=== PATIENT | male | born 1985 | race Caucasian/White ===

== ENCOUNTER 2023-03-17 18:37 | Observation (INO) | payer OTHER ==
[2023-03-17 19:23] LABS: Appearance,Urine Clear (Clear); Bilirubin,Urine Negative (Negative); Blood,Urine Negative (Negative); Color,Urine Colorless; Glucose,Urine (UA) Negative (Negative); Ketones,Urine Negative (Negative); Leukocyte Esterase,Urine Negative (Negative); Nitrite,Urine Negative (Negative); Protein,Urine Negative (Negative); Specific Gravity,Urine 1.003 (1.001-1.035); Urobilinogen,Urine <2.0 mg/dL (<2.0)
[2023-03-17] MEDS ORDERED: ONDANSETRON 4 MG/2 ML VIAL IVP PRN (20:23)
[2023-03-17] MEDS ORDERED: HYDROmorphone 0.5 MG/0.5 ML SYRINGE IVP PRN (20:23)
[2023-03-17] MEDS ORDERED: NALOXONE 0.4 MG/ML 1 ML VIAL IV PRN (20:23)
--- NOTE | 2023-03-17 20:27 | ED ---
General Adult HPI - General Chief complaint: Abdominal Pain Stated complaint: abd pain Time Seen by Provider: 03/17/23 20:00 Source: patient, RN notes reviewed, old records reviewed Mode of arrival: ambulatory Limitations: no limitations - History of Present Illness Initial comments: 38-year-old male presents for evaluation of intermittent abdominal pain and weight loss. Patient was sent in by Dr. Meraz for urgent workup. He had occult positive stool sample at Dr. Leblanc's office this morning. He's had pain throughout his abdomen over the past 5 months. He's had outpatient workup including laboratory testing I did scan and abdominal ultrasound. Patient reports this has normal. - Related Data Home Medications Medication Instructions Recorded Confirmed No Known Home Medications 03/17/23 03/17/23 Allergies Allergy/AdvReac Type Severity Reaction Status Date / Time No Known Allergies Allergy Verified 03/17/23 21:10 Review of Systems ROS Statement: Those systems with pertinent positive or pertinent negative responses have been documented in the HPI. ROS Other: All systems not noted in ROS Statement are negative. Past Medical History Past Medical History: No Reported History History of Any Multi-Drug Resistant Organisms: None Reported Past Surgical History: No Surgical Hx Reported Past Psychological History: No Psychological Hx Reported Smoking Status: Never smoker Past Alcohol Use History: None Reported Past Drug Use History: None Reported General Exam Limitations: no limitations General appearance: alert, in no apparent distress Head exam: Present: atraumatic, normocephalic Eye exam: Present: normal appearance, PERRL ENT exam: Present: normal exam Neck exam: Present: normal inspection. Absent: tenderness, meningismus Respiratory exam: Present: normal lung sounds bilaterally. Absent: respiratory distress, wheezes Cardiovascular Exam: Present: regular rate, normal rhythm GI/Abdominal exam: Present: soft, tenderness (Minimal tenderness). Absent: distended Extremities exam: Present: normal inspection, normal capillary refill Neurological exam: Present: alert, oriented X3, CN II-XII intact. Absent: motor sensory deficit Skin exam: Present: warm, dry, intact. Absent: cyanosis, diaphoretic Course Vital Signs 03/17/23 18:57 Temperature 97.9 F Pulse Rate 63 Respiratory 16 Rate Blood Pressure 126/75 O2 Sat by Pulse 98 Oximetry - Reevaluation(s) Reevaluation #1: 03/17/23 20:32 Patient was sent in for further evaluation of intermittent abdominal pain and weight loss. Laboratory testing, CT of the abdomen pelvis with contrast is pending. Patient has been admitted to Dr. Meraz awaiting these results. Medical Decision Making - Medical Decision Making Was pt. sent in by a medical professional or institution (, VINAYAK, CARD FILER, urgent care, hospital, or fdc...) When possible be specific @ -Sent in by Dr. Meraz Did you speak to anyone other than the patient for history (EMS, parent, family, police, friend...)? What history was obtained from this source @ -No Did you review nursing and triage notes (agree or disagree)? Why? @ -I reviewed and agree with nursing and triage notes Were old charts reviewed (outside hosp., previous admission, EMS record, old EKG, old radiological studies, urgent care reports/EKG's, fdc records)? Report findings @ -No old charts were reviewed Differential Diagnosis (chest pain, altered mental status, abdominal pain women, abdominal pain men, vaginal bleeding, weakness, fever, dyspnea, syncope, headache, dizziness, GI bleed, back pain, seizure, CVA, palpatations, mental health, musculoskeletal)? Differential Abdominal Pain Men: Appendicitis, cholecystitis, diverticulosis, ischemic bowel, pancreatitis, hepatitis, UTI, gastroenteritis, AAA, incarcerated hernia, bowel obstruction, constipation, inflammatory bowel, hepatitis, peptic ulcer disease, splenic infarction, perforated viscus, testicular torsion, this is not meant to be an all-inclusive list EKG interpreted by me (3pts min.). @ -As above X-rays interpreted by me (1pt min.). @ -None done CT interpreted by me (1pt min.). @ -CT pending U/S interpreted by me (1pt. min.). @ -None done What testing was considered but not performed or refused? (CT, X-rays, U/S, labs)? Why? @ -None What meds were considered but not given or refused? Why? @ -None Did you discuss the management of the patient with other professionals (professionals i.e. , VINAYAK, CARD FILER, lab, RT, psych nurse, case management social worker, outside plant field engineer, teacher, gunnery/ordnance officer, pillowcase cutter)? Give summary @Dr. Smallwood Was smoking cessation discussed for >3mins.? @ -No Was critical care preformed (if so, how long)? @ -No Were there social determinants of health that impacted care today? How? (Homelessness, low income, unemployed, alcoholism, drug addiction, transportation, low edu. Level, literacy, decrease access to med. care, [facility], rehab)? @ -No Was there de-escalation of care discussed even if they declined (Discuss DNR or withdrawal of care, Hospice)? DNR status @ -No What co-morbidities impacted this encounter? (DM, HTN, Smoking, COPD, CAD, Cancer, CVA, ARF, Chemo, Hep., AIDS, mental health diagnosis, sleep apnea, morbid obesity)? @ -None Was patient admitted / discharged? Hospital course, mention meds given and route, prescriptions, significant lab abnormalities, going to OR and other pertinent info. @Patient sent in for evaluation of intermittent abdominal pain and weight loss. Laboratory studies are obtained, CT imaging obtained and patient will be admitted for likely colonoscopy and further evaluation by general surgery. Undiagnosed new problem with uncertain prognosis? @ -No Drug Therapy requiring intensive monitoring for toxicity (Heparin, Nitro, Insulin, Cardizem)? @ -No Were any procedures done? @ -No Diagnosis/symptom? @Abdominal pain Acute, or Chronic, or Acute on Chronic? @Chronic - Lab Data Result diagrams: 03/17/23 20:07 03/17/23 20:07 Lab Results 03/17/23 03/17/23 03/17/23 Range/Units 19:03 20:07 20:07 WBC 5.4 (3.8-10.6) k/uL RBC 4.10 L (4.30-5.90) m/uL Hgb 13.0 (13.0-17.5) gm/dL Hct 38.5 L (39.0-53.0) % MCV 93.8 (80.0-100.0) fL MCH 31.7 (25.0-35.0) pg MCHC 33.8 (31.0-37.0) g/dL RDW 12.3 (11.5-15.5) % Plt Count 222 (150-450) k/uL MPV 7.4 Neutrophils % 55 % Lymphocytes % 37 % Monocytes % 5 % Eosinophils % 1 % Basophils % 0 % Neutrophils # 3.0 (1.3-7.7) k/uL Lymphocytes # 2.0 (1.0-4.8) k/uL Monocytes # 0.3 (0-1.0) k/uL Eosinophils # 0.0 (0-0.7) k/uL Basophils # 0.0 (0-0.2) k/uL PT 11.0 (9.0-12.0) sec INR 1.0 (<1.2) APTT 24.5 (22.0-30.0) sec Sodium (137-145) mmol/L Potassium (3.5-5.1) mmol/L Chloride (98-107) mmol/L Carbon Dioxide (22-30) mmol/L Anion Gap mmol/L BUN (9-20) mg/dL Creatinine (0.66-1.25) mg/dL Est GFR (CKD-EPI)AfAm (>60 ml/min/1.73 sqM) Est GFR (CKD-EPI)NonAf (>60 ml/min/1.73 sqM) Glucose (74-99) mg/dL Plasma Lactic Acid Ming (0.7-2.0) mmol/L Calcium (8.4-10.2) mg/dL Total Bilirubin (0.2-1.3) mg/dL AST (17-59) U/L ALT (4-49) U/L Alkaline Phosphatase (38-126) U/L Total Protein (6.3-8.2) g/dL Albumin (3.5-5.0) g/dL Amylase (30-110) U/L Lipase (23-300) U/L Urine Color Colorless Urine Appearance Clear (Clear) Urine pH 7.0 (5.0-8.0) Ur Specific [place] 1.003 (1.001-1.035) Urine Protein Negative (Negative) Urine Glucose (UA) Negative (Negative) Urine Ketones Negative (Negative) Urine Blood Negative (Negative) Urine Nitrite Negative (Negative) Urine Bilirubin Negative (Negative) Urine Urobilinogen <2.0 (<2.0) mg/dL Ur Leukocyte Esterase Negative (Negative) 03/17/23 03/17/23 Range/Units 20:07 20:07 WBC (3.8-10.6) k/uL RBC (4.30-5.90) m/uL Hgb (13.0-17.5) gm/dL Hct (39.0-53.0) % MCV (80.0-100.0) fL MCH (25.0-35.0) pg MCHC (31.0-37.0) g/dL RDW (11.5-15.5) % Plt Count (150-450) k/uL MPV Neutrophils % % Lymphocytes % % Monocytes % % Eosinophils % % Basophils % % Neutrophils # (1.3-7.7) k/uL Lymphocytes # (1.0-4.8) k/uL Monocytes # (0-1.0) k/uL Eosinophils # (0-0.7) k/uL Basophils # (0-0.2) k/uL PT (9.0-12.0) sec INR (<1.2) APTT (22.0-30.0) sec Sodium 139 (137-145) mmol/L Potassium 4.0 (3.5-5.1) mmol/L Chloride 103 (98-107) mmol/L Carbon Dioxide 31 H (22-30) mmol/L Anion Gap 5 mmol/L BUN 13 (9-20) mg/dL Creatinine 0.67 (0.66-1.25) mg/dL Est GFR (CKD-EPI)AfAm >90 (>60 ml/min/1.73 sqM) Est GFR (CKD-EPI)NonAf >90 (>60 ml/min/1.73 sqM) Glucose 83 (74-99) mg/dL Plasma Lactic Acid Ming 0.5 L (0.7-2.0) mmol/L Calcium 9.2 (8.4-10.2) mg/dL Total Bilirubin 0.6 (0.2-1.3) mg/dL AST 34 (17-59) U/L ALT 45 (4-49) U/L Alkaline Phosphatase 70 (38-126) U/L Total Protein 6.8 (6.3-8.2) g/dL Albumin 4.1 (3.5-5.0) g/dL Amylase 62 (30-110) U/L Lipase 188 (23-300) U/L Urine Color Urine Appearance (Clear) Urine pH (5.0-8.0) Ur Specific [place] (1.001-1.035) Urine Protein (Negative) Urine Glucose (UA) (Negative) Urine Ketones (Negative) Urine Blood (Negative) Urine Nitrite (Negative) Urine Bilirubin (Negative) Urine Urobilinogen (<2.0) mg/dL Ur Leukocyte Esterase (Negative) Disposition Clinical Impression: Abdominal pain Disposition: ADMITTED IP TO THIS HOSP Condition: Stable Is patient prescribed a controlled substance at d/c from ED?: No Time of Disposition: 20:26
[2023-03-17 20:43] LABS: Basophils % (A) 0 %; Eosinophils % (A) 1 %; HCT 38.5 % (39.0-53.0); Lymphocytes % (A) 37 %; MCH 31.7 pg (25.0-35.0); MCHC 33.8 g/dL (31.0-37.0); MCV 93.8 fL (80.0-100.0); Mean Platelet Volume 7.4; Monocytes # (A) 0.3 k/uL (0-1.0); Monocytes % (A) 5 %; Neutrophils % (A) 55 %; Platelet Count 222 k/uL (150-450); RDW 12.3 % (11.5-15.5); WBC 5.4 k/uL (3.8-10.6)
[2023-03-17 21:01] LABS: Partial Thromboplastin Time 24.5 sec (22.0-30.0)
[2023-03-17 21:02] LABS: ALT 45 U/L (4-49); AST 34 U/L (17-59); African American GFR (CKD) >90 (>60 ml/min/1.73 sqM); Albumin 4.1 g/dL (3.5-5.0); Alkaline Phosphatase 70 U/L (38-126); Amylase 62 U/L (30-110); Anion Gap 5 mmol/L; Blood Urea Nitrogen 13 mg/dL (9-20); Calcium 9.2 mg/dL (8.4-10.2); Carbon Dioxide 31 mmol/L (22-30); Chloride 103 mmol/L (98-107); Glucose 83 mg/dL (74-99); Lipase 188 U/L (23-300); Non-African American GFR(CKD) >90 (>60 ml/min/1.73 sqM); Sodium 139 mmol/L (137-145); Total Bilirubin 0.6 mg/dL (0.2-1.3); Total Protein 6.8 g/dL (6.3-8.2)
[2023-03-17] MEDS ORDERED: PEG 3350 (420 GM/BTL) + LYTES 4,000 ML BOTTLE PO ONE (21:30)
--- NOTE | 2023-03-17 21:40 | CT ---
EXAMINATION TYPE: CT abdomen pelvis w con DATE OF EXAM: 03/17/2023 COMPARISON: Ultrasound 12/24/2022 HISTORY: 38-year-old male generalized abd pain TECHNIQUE: Contiguous axial scanning of the abdomen and pelvis following administration of 100 ml Iso dara 300 IV contrast. Delayed images through the kidneys and coronal/sagittal reconstructions perform ed. CT DLP: 822.3 mGycm Automated exposure control for dose reduction was used. FINDINGS: Heart normal size without pericardial effusion. Lung bases clear without pleural effusion. No focal liver lesion or biliary ductal dilatation. Portal venous system is patent. Gallbladder, adrenal glands, kidneys, spleen, and pancreas within normal limits. Hilar splenule noted . No dilated small bowel, free fluid, or free air. Some prominent fluid-filled small bowel loops in the lower abdomen and pelvis probably transient. No mesenteric or retroperitoneal lymphadenopathy seen. Normal appendix. There is moderate stool in the right side of the colon. No pericolonic inflammatory change. Bladder partially distended. Prostate gland enlargement 5.1 cm wide. No abnormal fluid collection in the pelvis or pelvic lymphadenopathy. Bones: No osseous destructive process. IMPRESSION: 1. SOME PROMINENT FLUID-FILLED SMALL BOWEL LOOPS IN THE LOWER ABDOMEN AND PELVIS PROBABLY TRANSIENT. THIS COULD ALSO REFLECT A MILD NONSPECIFIC ENTERITIS. 2. MODERATE STOOL WITHIN THE RIGHT SIDE OF THE COLON. NORMAL APPENDIX. 3. PROSTATOMEGALY AT 5.1 CM WIDE.
[2023-03-17] MEDS: SODIUM CHLORIDE 0.9% 1,000 ML IV SCH (22:14)
[2023-03-18] MEDS: PANTOPRAZOLE 40 MG/10 ML VIAL IVP SCH (11:01)
[2023-03-18] MEDS: SODIUM CHLORIDE 0.9% 1,000 ML IV SCH ×2 (11:01→21:16)
[2023-03-18] MEDS ORDERED: METOCLOPRAMIDE 5 MG/ML 2 ML VIAL IVP PRN (11:02)
[2023-03-18] MEDS ORDERED: ACETAMINOPHEN TAB 325 MG TAB PO PRN (11:02)
[2023-03-18] MEDS ORDERED: SODIUM CHLORIDE 0.9% 1,000 ML IV ONE (11:03)
[2023-03-18] MEDS ORDERED: PEG 3350 (420 GM/BTL) + LYTES 4,000 ML BOTTLE PO ONE (11:30)
[2023-03-18 12:41] VITALS: BMI 24.0
--- NOTE | 2023-03-18 14:39 | P.GSHP ---
History of Present Illness H&P Date: 03/18/23 CHIEF COMPLAINT: Abdominal pain HISTORY OF PRESENT ILLNESS: This is a 38-year-old male who presented with complaints of abdominal pain mostly on the right side of the abdomen. However the pain does move throughout the abdomen. He does report that the pain sometimes radiates to the back. He's been having this pain since Ly time. He is expressible 20 pound weight loss over the last 2 months. Stool was positive for occult blood in his PCP office. Patient does report occasionally having black stools. He does report having mostly diarrhea but at times he'll have small formed stools. Computed tomography scan abdomen had shown some prominent fluid-filled small bowel loops in the lower abdomen and pelvis probably transient. This could also reflect a mild nonspecific enteritis. Mo derate stool within the right side of the colon. Normal appendix. Prostamegaly of 5.1 cm wide. Patient has never had a colonoscopy. PAST MEDICAL HISTORY: none PAST SURGICAL HISTORY: none MEDICATIONS: See list. ALLERGIES: See list. SOCIAL HISTORY: No illicit drug use. Family history: Dad with prostate cancer REVIEW OF SYSTEMS: CONSTITUTIONAL: Denies fever or chills. HEENT: Denies blurred vision, vision changes, or eye pain. Denies hemoptysis ENDOCRINE: Denies heat or cold intolerance. CARDIOVASCULAR: Denies chest pain or pressure. RESPIRATORY: No shortness of breath. GASTROINTESTINAL: Denies abdominal pain. Denies nausea or vomiting. NEURO: Denies history of seizures. PSYCH: No depression or suicidal ideation HEMATOLOGIC: Denies bleeding disorders. LYMPHATIC: The patient denies any lumps and bumps around the neck. GENITOURINARY: Denies any blood in urine or increased urinary frequency. MUSCULOSKELETAL: Denies myalgias. Denies joint swelling. Denies decreased range of motion beyond patients baseline. SKIN: Denies pruitis. Denies rash. PHYSICAL EXAM: VITAL SIGNS: Reviewed GENERAL: Well-developed in no acute distress. HEENT: No sclera icterus. Extraocular movements grossly intact. Moist buccal mucosa. Head is atraumatic, normocephalic. Hears conversational speech. No nasal drainage. NECK: Supple without lymphadenopathy. CHEST: Non-labored respirations and equal bilateral excursions. CARDIOVASCULAR: Palpable 2+ radial pulses. ABDOMEN: Soft. Nondistended. Mild right-sided tenderness MUSCULOSKELETAL: No clubbing or cyanosis. NEUROLOGIC: No focal or lateralizing signs. Cranial nerves II through XII grossly intact. PSYCH: Appropriate affect. Alert and oriented to person, place and time. SKIN: Well perfused. Good skin turgor. LABORATORY DATA: WBC is 5.4 Hgb 13 platelets 222 INR 1.0 Sodium is 139 potassium 4.0 creatinine 0.67 Lactic acid 0.5 LFTs normal lipase 188 Urinalysis negative for infection IMAGING: Computed tomography scan findings as stated above ASSESSMENT: 1. Acute GI bleed with melanotic stools. Stool for occult blood positive and PCP office 2. Abdominal pain mostly on the right side 3. Prominent fluid-filled loops of small bowel noted on computed tomography scan possible enteritis 4. Enlarged prostate 5. 20 pound weight loss PLAN: -Patient scheduled for EGD and colonoscopy tomorrow with Dr. Meraz -Start bowel prep today -Clear liquid diet today -Nothing by mouth after midnight -Continue IV fluids -Continue IV Protonix Physician Manager Machine note has been reviewed by physician. Signing provider agrees with the documented findings, assessment, and plan of care. Past Medical History Past Medical History: No Reported History History of Any Multi-Drug Resistant Organisms: None Reported Past Surgical History: No Surgical Hx Reported Past Anesthesia/Blood Transfusion Reactions: No Reported Reaction Past Psychological History: No Psychological Hx Reported Smoking Status: Never smoker Past Alcohol Use History: None Reported Past Drug Use History: None Reported Medications and Allergies Home Medications Medication Instructions Recorded Confirmed Type No Known Home Medications 03/17/23 03/17/23 History Allergies Allergy/AdvReac Type Severity Reaction Status Date / Time No Known Allergies Allergy Verified 03/17/23 21:10 Surgical - Exam Vital Signs Temp Pulse Resp BP Pulse Ox 97.9 F 63 16 126/75 98 03/17/23 18:57 03/17/23 18:57 03/17/23 18:57 03/17/23 18:57 03/17/23 18:57 Results - Labs 03/17/23 20:07 03/17/23 20:07 Abnormal Lab Results - Last 24 Hours (Table) 03/17/23 03/17/23 03/17/23 Range/Units 20:07 20:07 20:07 RBC 4.10 L (4.30-5.90) m/uL Hct 38.5 L (39.0-53.0) % Carbon Dioxide 31 H (22-30) mmol/L Plasma Lactic Acid Ming 0.5 L (0.7-2.0) mmol/L Diabetes panel 03/17/23 Range/Units 20:07 Sodium 139 (137-145) mmol/L Potassium 4.0 (3.5-5.1) mmol/L Chloride 103 (98-107) mmol/L Carbon Dioxide 31 H (22-30) mmol/L BUN 13 (9-20) mg/dL Creatinine 0.67 (0.66-1.25) mg/dL Glucose 83 (74-99) mg/dL Calcium 9.2 (8.4-10.2) mg/dL AST 34 (17-59) U/L ALT 45 (4-49) U/L Alkaline Phosphatase 70 (38-126) U/L Total Protein 6.8 (6.3-8.2) g/dL Albumin 4.1 (3.5-5.0) g/dL Calcium panel 03/17/23 Range/Units 20:07 Calcium 9.2 (8.4-10.2) mg/dL Albumin 4.1 (3.5-5.0) g/dL Pituitary panel 03/17/23 Range/Units 20:07 Sodium 139 (137-145) mmol/L Potassium 4.0 (3.5-5.1) mmol/L Chloride 103 (98-107) mmol/L Carbon Dioxide 31 H (22-30) mmol/L BUN 13 (9-20) mg/dL Creatinine 0.67 (0.66-1.25) mg/dL Glucose 83 (74-99) mg/dL Calcium 9.2 (8.4-10.2) mg/dL Adrenal panel 03/17/23 Range/Units 20:07 Sodium 139 (137-145) mmol/L Potassium 4.0 (3.5-5.1) mmol/L Chloride 103 (98-107) mmol/L Carbon Dioxide 31 H (22-30) mmol/L BUN 13 (9-20) mg/dL Creatinine 0.67 (0.66-1.25) mg/dL Glucose 83 (74-99) mg/dL Calcium 9.2 (8.4-10.2) mg/dL Total Bilirubin 0.6 (0.2-1.3) mg/dL AST 34 (17-59) U/L ALT 45 (4-49) U/L Alkaline Phosphatase 70 (38-126) U/L Total Protein 6.8 (6.3-8.2) g/dL Albumin 4.1 (3.5-5.0) g/dL
--- NOTE | 2023-03-18 18:43 | P.CONS ---
History of Present Illness - Reason for Consult Consult date: 03/18/23 Medical management Requesting physician: Marina Meraz - Chief Complaint Abdominal pain - History of Present Illness This is a 38-year-old gentleman not on any home medications, father with prostate cancer, admitted with diffuse abdominal pain, greatest on the right s aisl[place],rectal pain since October 2023, unintentional 20 pound weight loss over the last 2 months. Occult blood positive at PCPs office. Reports bowel movements are mostly diarrhea-melanotic. Abdomen/pelvis CT reported some prominent fluid- filled small bowel loops in the lower abdomen and pelvis probably transient, possibly could reflect a mild nonspecific enteritis, moderate stool within the right side of the colon, normal appendix, prosthetic dramatically at 5.1 cm wide. Afebrile, normal WBC, hemoglobin 13, platelets 222, coagulation panel unremarkable, sodium 139, potassium 4, renal function stable glucose 83, lactic acid 0.5, LFTs within normal limits, pancreatic enzymes within normal limits. UA negative. Denies chest pain, palpitations or shortness of breath. Denies lightheadedness, dizziness or focal deficits. Review of Systems ROS Statement: Those systems with pertinent positive or pertinent negative responses have been documented in the HPI. ROS Other: All systems not noted in ROS Statement are negative. Past Medical History Past Medical History: No Reported History History of Any Multi-Drug Resistant Organisms: None Reported Past Surgical History: No Surgical Hx Reported Past Anesthesia/Blood Transfusion Reactions: No Reported Reaction Past Psychological History: No Psychological Hx Reported Smoking Status: Never smoker Past Alcohol Use History: None Reported Past Drug Use History: None Reported Medications and Allergies Home Medications Medication Instructions Recorded Confirmed Type No Known Home Medications 03/17/23 03/17/23 History Allergies Allergy/AdvReac Type Severity Reaction Status Date / Time No Known Allergies Allergy Verified 03/17/23 21:10 Physical Exam Vitals: Vital Signs Temp Pulse Pulse Resp BP BP Pulse Ox 03/18/23 12:31 98.2 F 56 L 18 110/63 98 03/18/23 07:03 97.8 F 58 L 16 103/50 98 03/18/23 01:04 97.8 F 59 L 16 99/61 98 03/17/23 21:43 98.3 F 59 L 18 133/70 99 03/17/23 18:57 97.9 F 63 16 126/75 98 Intake and Output 03/18/23 03/18/23 03/18/23 06:59 14:59 22:59 Other: # Voids 1 Weight 76.204 kg Results CBC & Chem 7: 03/17/23 20:07 03/17/23 20:07 Labs: Abnormal Lab Results - Last 24 Hours (Table) 03/17/23 03/17/23 03/17/23 Range/Units 20:07 20:07 20:07 RBC 4.10 L (4.30-5.90) m/uL Hct 38.5 L (39.0-53.0) % Carbon Dioxide 31 H (22-30) mmol/L Plasma Lactic Acid Ming 0.5 L (0.7-2.0) mmol/L Assessment and Plan Assessment: Abdominal pain 5 months, accompanied by acute GI bleed , positive stool for occult blood at PCPs office ,unintentional 20 pound weight loss over 2 months, etiology unclear Prominent fluid-filled loops of small bowel,possible enteritis reported per CT. Enlarged prostate, in a patient whose father has history of prostate cancer, PSA ordered Plan: Continue on current medication regime ,monitoring and symptomatic treatment. IV fluid hydration. Patient is scheduled for both EGD and colonoscopy tomorrow with general surgery. Bowel prep recently arrived at bedside. Protonix IV push in place for GI prophylaxis. Pain management. PSA ordered, secondary to enlarged prostate/father has prostate cancer. Prognosis guarded given multiple complex medical issues. The impression and plan of care has been dictated as directed. : I performed a history and examination of this patient, discussed the same with the dictator. I agree with the dictator's note ,documented as a scribe. Any additional findings or plans will be noted.
[2023-03-19 07:32] VITALS: TEMP 98
[2023-03-19] MEDS: PANTOPRAZOLE 40 MG/10 ML VIAL IVP SCH (08:21)
[2023-03-19] MEDS ORDERED: LIDOCAINE 2% INJ 20 MG/ML (2 ML VIAL) ONE (09:13)
[2023-03-19] MEDS ORDERED: PROPOFOL 10 MG/ML 20 ML VIAL IV ONE (09:13)
[2023-03-19] MEDS ORDERED: IV FLUID CONTINUATION 1,000 ML IV ONE (09:15)
[2023-03-19 09:24] LABS: African American GFR (CKD) 137.8 (60.0-200.0); Anion Gap 5.8 mmol/L (10.00-18.00); BUN/Creat Ratio 12.86 Ratio (12.00-20.00); Calcium 9.1 mg/dL (8.7-10.3); Carbon Dioxide 26.2 mmol/L (20.0-27.5); Non-African American GFR(CKD) 118.9 (60.0-200.0); Potassium 4.2 mmol/L (3.5-5.5)
--- NOTE | 2023-03-19 09:32 | P.PCN ---
Date of Procedure: 03/19/23 Description of Procedure: PREOPERATIVE DIAGNOSIS: Gastrointestinal bleed Unintentional weight loss Diffuse abdominal pain POSTOPERATIVE DIAGNOSIS: Gastroesophageal reflux disease. Gastritis. OPERATION: Esophagogastroduodenoscopy with biopsies along antrum and duodenum SURGEON: Marina Meraz MD ANESTHESIA: MAC. INDICATIONS: The patient is a 38-year-old male who presents with gastrointestinal bleeding, generalized abdominal pain, unintentional weight loss or change in bowel habits. Benefits and risks of the procedure were described. Informed consent was obtained. DESCRIPTION: The patient was brought into the endoscopy suite and laid in the left lateral decubitus position. An Olympus gastroscope was passed along the posterior oropharynx down to the distal esophagus where the squamocolumnar junction was encountered at 40 cm from the incisors. The stomach was entered and no bile reflux was found. Additional findings are listed below. Biopsies with cold forceps were obtained of the antrum. The first through third portion of the duodenum was examined. Retroflexion of the scope confirmed Hill grade 2 lower esophageal valve. The squamocolumnar junction demonstrated LA grade B erosive esophagitis. The stomach was desufflated. The patient tolerated the procedure well. FINDINGS: Squamocolumnar junction 40 cm from the incisors. Diaphragmatic hiatus at 40 cm. Hill grade 2 lower esophageal valve. LA grade B erosive esophagitis. Cold forceps biopsies of duodenum Chronic gastritis with biopsies obtained RECOMMENDATIONS: Upper endoscopy as needed.
--- NOTE | 2023-03-19 10:21 | P.PCN ---
Date of Procedure: 03/19/23 Description of Procedure: PREOPERATIVE DIAGNOSIS: Gastrointestinal bleeding with hematochezia Unintentional weight loss Generalized abdominal pain POSTOPERATIVE DIAGNOSIS: Gastrointestinal bleeding with hematochezia Unintentional weight loss Generalized abdominal pain Colitis OPERATION: Colonoscopy to the cecum, ileocecal valve and appendiceal orifice Colonoscopy with cold forceps biopsies for colitis with stool cultures obtained SURGEON: Marina Meraz MD. ANESTHESIA: MAC. INDICATIONS: The patient is a 38-year-old male who presents with gastrointestinal bleeding and positive occult stool. Benefits and risks were described and informed consent was obtained. DESCRIPTION OF PROCEDURE: The patient had undergone attempted Golytely prep 4 L. The patient had been brought into the operating room and laid in the left lateral decubitus position. After adequate intravenous sedation, the rectum was examined with 2% lidocaine jelly. The rectal tone was tight. An Olympus colonoscope was gently advanced to the cecum with clear visualization of the ileocecal valve including appendiceal orifice. The prep was good. No sigmoid diverticulosis was encountered. No active colonic bleeding was found. No intraluminal masses were identified within the colon. No colonic polyps were found. Random biopsies were obtained for colitis. Retroflexion of the scope demonstrated grade 2 internal hemorrhoids with recent inflammation. The colon was desufflated. The patient had tolerated the procedure well. Withdrawal time was over 6 minutes. FINDINGS: Aronchick preparation quality scale 1 (1-5) Internal hemorrhoids, grade 2 No thrombosed hemorrhoid identified. No arteriovenous malformations. No adenomatous polyps. Random biopsies obtained for colitis. RECOMMENDATIONS: 1. Follow up as outpatient for results. 2. Stool cultures obtained Plan - Discharge Summary Discharge Rx Participant: Yes New Discharge Prescriptions: Continue No Known Home Medications Discharge Medication List No Known Home Medications 03/17/23 [History] Follow up Appointment(s)/Referral(s): Abdoul Leblanc Jr, DO [Primary Care Provider] - 1-2 days Marina Meraz MD [STAFF PHYSICIAN] - 03/25/23 9:00 am Patient Instructions/Handouts: Colonoscopy (DC) Discharge Disposition: HOME SELF-CARE
[2023-03-19 10:31] LABS: Basophils # (A) 0.02 X 10*3/uL (0.00-0.10); Basophils % (A) 0.5 %; Eosinophils # (A) 0.06 X 10*3/uL (0.04-0.35); Eosinophils % (A) 1.6 %; HCT 34.8 % (39.6-50.0); HGB 11.5 g/dL (13.0-17.0); Immature Grans, Automated 0.3 %; Lymphocytes # (A) 1.74 X 10*3/uL (0.90-5.00); Lymphocytes % (A) 45.2 %; MCV 96.9 fL (80.0-97.0); Mean Platelet Volume 10.1 fL (9.5-12.2); Monocytes # (A) 0.39 X 10*3/uL (0.20-1.00); Monocytes % (A) 10.1 %; NRBC Per 100 WBC 0 /100 WBCS (0.0-0.0); Neutrophils # (A) 1.63 X 10*3/uL (1.80-7.70); Neutrophils % (A) 42.3 %; Platelet Count 188 X 10*3/uL (140-440); RBC 3.59 X 10*6/uL (4.40-5.60); RDW 11.7 % (11.5-14.5); WBC 3.85 X 10*3/uL (4.50-10.00)
[2023-03-19 10:33] VITALS: BP 109/56; PULSE 61; RESP 18
[2023-03-21 10:06] LABS: Calprotectin, Stool 29.1 mcg/g (<50)
--- NOTE | 2023-03-24 12:37 | CDI ---
Documentation Clarification Form Date: 03/24/2023 From: Leyla Page Admit Date: 03/17/2023 8:23:00 PM Patient Name: Baljinder Edge Visit Number: [id number] Discharge Date: 03/19/2023 11:10:00 AM ATTENTION: The Clinical Documentation Specialists (CDI) and [facility] Coding Staff appreciate your assistance in clarifying documentation. Please respond to the clarification below the line at the bottom and electronically sign. The CDI & [facility] Coding staff will review the response and follow-up if needed. Please note: Queries are made part of the Legal Health Record. If you have any questions, please contact the author of this message via ITS. Dr. Marina Meraz, GI bleed is documented 03/18 History & Physical. Additional clarification regarding the etiology of the GI bleed is requested. History/risk factors: GERD, Hernia, BPH, unintentional weight loss, Hemorrhoids. Clinical Indicators: Occult Blood EGD/colonoscopy performed and findings: LA grade Berosive esophagitis, Chronic gastritis Labs: 03/17 HCT 38.5, HGB 13.0, RBC 4.10, WBC 5.4; 03/19 HCT 34.8, HGB 11.5, RBC 3.59, WBC 3.85, Lactoferrin Positive Treatment: 03/19 EGD/Colonoscopy Please clarify the etiology of the GI bleed, if known: [ ] GIB due to esophageal varices [ ] GIB due to esophageal ulcer [ ] GIB due to gastritis [ ] GIB due to GERD [ ] GIB due to intestinal infection [ ] GIB, etiology unknown [ ] Other, please specify [ ] Unable to determine MTDD
--- NOTE | 2023-04-13 18:08 | P.DS ---
Providers Date of admission: 03/17/23 20:23 Expected date of discharge: 03/19/23 Attending physician: Marina Meraz Consults: 03/17/23 20:23 Consult Physician Routine Consulting Provider: Abdoul Leblanc Jr Consult Reason/Comments: AB pain Do you want consulting provider notified?: Yes Primary care physician: [facility] Course: DISCHARGE DIAGNOSES: Gastrointestinal bleeding with hematochezia Unintentional weight loss Generalized abdominal pain Colitis Anemia Leukopenia CHIEF COMPLAINT: Gastrointestinal bleeding HISTORY OF PRESENT ILLNESS: The patient is a 38-year-old male who presented with acute on chronic abdominal pain, unintentional weight loss in the past 6 months and recent acute GI bleed with hematochezia. Due to severe as abdominal pain including GI bleeding, patient was admitted to the hospital. He underwent both upper and lower endoscopy to identify source of bleeding. Features of colitis described. Stool studies were obtained. Upper endoscopy findings of gastritis. Prior to discharge, IV fluid hydration was performed which patient tolerated diet. Follow up in office 1 week. ROS: Reports nausea and vomiting. No fevers or chills. No new chest pain. No productive sputum PHYSICAL EXAM: VITAL SIGNS: Reviewed CONSTITUTIONAL: Well developed and in no acute distress. EYES: Conjuctivae without sclera icterus. Extraocular movements grossly intact. HEAD, EARS, NOSE, THROAT: Moist buccal mucosa. Head is atraumatic, normocephalic. Hears conversational speech. No nasal drainage. RESPIRATORY: Non-labored respirations and equal bilateral excursions. CARDIOVASCULAR: Palpable 2+ radial pulses. ABDOMEN: No peritonitis. MUSCULOSKELETAL: No gross deformity of the lower extremities noted. No clubbing. No cyanosis. SKIN: Good skin turgor. Well perfused. NEUROLOGIC: Cranial nerves II through XII grossly intact. No focal or lateralizing signs. PSYCH: Appropriate affect. Alert and oriented to person, place and time. CLINICAL LABS: Reviewed. Hemoglobin count 13.0-11.5, anemia; WBC is low, leukopenia Stool cultures pending. ASSESSMENT: 1. GI bleed with anemia PLAN: 1. Stable for discharge 2. Follow up in office 1 week Patient Condition at Discharge: Good Plan - Discharge Summary Discharge Rx Participant: Yes New Discharge Prescriptions: Continue No Known Home Medications Discharge Medication List No Known Home Medications 03/17/23 [History] Follow up Appointment(s)/Referral(s): Abdoul Leblanc Jr, DO [Primary Care Provider] - 03/21/23 1:00 pm Marina Meraz MD [STAFF PHYSICIAN] - 03/25/23 9:00 am Patient Instructions/Handouts: Colonoscopy (DC) Activity/Diet/Wound Care/Special Instructions: PSA results to be faxed to PCP, . Discharge Disposition: HOME SELF-CARE
== END 2023-03-19 11:10 | disposition home or self-care (01) ==
LOC: EC 18:37 → 5NMEDONC 20:23 → INTOOBSV 20:23 → 5NMEDONC 21:13 → UNDODISIN 03-19 11:10
PROVIDERS: ADMIT Surgery Plastic and Reconstructive Surgery; ATTEND Surgery Plastic and Reconstructive Surgery
DX: K29.80 Duodenitis without bleeding (principal); K29.50 Unspecified chronic gastritis without bleeding; K21.00 Gastro-esophageal reflux disease with esophagitis, without bleeding; K64.1 Second degree hemorrhoids; N40.0 Benign prostatic hyperplasia without lower urinary tract symptoms; R63.4 Abnormal weight loss; Z80.42 Family history of malignant neoplasm of prostate
CPT/HCPCS: 96361 ×2; 96374; 96376; 99285; 36415; 87338; 88305; 84153; 80053; 80048; 82150; 83605; 83690; 85025 ×2; 85610; 85730; 81003; 87324; 83993; 87045; 83630; 87046; 74177; 45380; 43239; G0378 ×3; J2704; C9113 ×2; Q9967; J2001

== ENCOUNTER 2023-09-27 23:04 | Emergency (ER) | payer OTHER ==
[2023-09-27 23:10] VITALS: RESP 18; TEMP 98.3
--- NOTE | 2023-09-27 23:29 | ED ---
General Adult HPI - General Chief complaint: Neuro Symptoms/Deficit Stated complaint: Blurry vision left eye, Numbness in mouth Time Seen by Provider: 09/27/23 23:13 Source: patient, RN notes reviewed, old records reviewed Mode of arrival: ambulatory Limitations: no limitations - History of Present Illness Initial comments: 38 yo female presenting for evaluation of left-sided facial numbness and an episode of blurry vision. Patient states that yesterday endoscopy nurse approximately 20 hours ago he had been sleeping on the couch, woke with left-sided numbness which she attributed to the position he was sleeping this was both arm and leg. This resolved. Then all watching television this evening he developed the left-sided facial numbness and blurry vision. Again the symptoms resolved. However he presents to the emergency department for evalu ation. No prior history of migraine headache, no prior history of CVA patient is otherwise healthy. - Related Data Previous Rx's Medication Instructions Recorded Amoxic-Pot Clav 875-125Mg 1 tab PO Q12HR 10 Days #20 tab 09/28/23 [Augmentin 875-125] Allergies Allergy/AdvReac Type Severity Reaction Status Date / Time No Known Allergies Allergy Verified 09/27/23 23:09 Review of Systems ROS Statement: Those systems with pertinent positive or pertinent negative responses have been documented in the HPI. ROS Other: All systems not noted in ROS Statement are negative. Past Medical History Past Medical History: No Reported History History of Any Multi-Drug Resistant Organisms: None Reported Past Surgical History: No Surgical Hx Reported Past Anesthesia/Blood Transfusion Reactions: No Reported Reaction Past Psychological History: No Psychological Hx Reported Smoking Status: Never smoker Past Alcohol Use History: None Reported Past Drug Use History: None Reported General Exam Limitations: no limitations General appearance: alert, in no apparent distress Head exam: Present: atraumatic, normocephalic Eye exam: Present: normal appearance, PERRL ENT exam: Present: normal exam Neck exam: Present: normal inspection. Absent: tenderness, meningismus Respiratory exam: Present: normal lung sounds bilaterally. Absent: respiratory distress, wheezes Cardiovascular Exam: Present: regular rate, normal rhythm GI/Abdominal exam: Present: soft. Absent: distended, tenderness, guarding Extremities exam: Present: normal inspection, normal capillary refill Neurological exam: Present: alert, oriented X3, CN II-XII intact, other (No facial droop, 5 out of 5 strength throughout the upper and lower extremities, no limb ataxia, NIH is 0). Absent: motor sensory deficit Psychiatric exam: Present: normal affect, normal mood Skin exam: Present: warm, dry, intact Course Vital Signs 09/27/23 09/27/23 09/27/23 23:06 23:14 23:45 Temperature 98.3 F Pulse Rate 57 L 66 73 Respiratory 18 18 18 Rate Blood Pressure 144/74 136/83 121/83 O2 Sat by Pulse 100 98 97 Oximetry 09/28/23 09/28/23 00:30 01:28 Temperature Pulse Rate 60 58 L Respiratory 18 18 Rate Blood Pressure 124/79 127/64 O2 Sat by Pulse 98 98 Oximetry Medical Decision Making - Medical Decision Making Was pt. sent in by a medical professional or institution (, PA, REGIONAL AGRONOMIST, urgent care, hospital, or penitentiary...) When possible be specific @ -No Did you speak to anyone other than the patient for history (EMS, parent, family, police, friend...)? What history was obtained from this source @ -No Did you review nursing and triage notes (agree or disagree)? Why? @ -I reviewed and agree with nursing and triage notes Were old charts reviewed (outside hosp., previous admission, EMS record, old EKG, old radiological studies, urgent care reports/EKG's, penitentiary records)? Report findings @ -No old charts were reviewed Differential Diagnosis (chest pain, altered mental status, abdominal pain women, abdominal pain men, vaginal bleeding, weakness, fever, dyspnea, syncope, headache, dizziness, GI bleed, back pain, seizure, CVA, palpatations, mental health, musculoskeletal)? @ -CVA, TIA, facial numbness and tingling, paresthesia EKG interpreted by me (3pts min.). @ -[Sinus bradycardia rate of 55, incomplete right bundle branch block, ME int erval 152, QRS duration 102, QTC 396. X-rays interpreted by me (1pt min.). @ -None done CT interpreted by me (1pt min.). @ CT negative for intracranial hemorrhage or mass effect, no acute findings within the brain. Patient does have a left maxillary sinusitis U/S interpreted by me (1pt. min.). @ -None done What testing was considered but not performed or refused? (CT, X-rays, U/S, labs)? Why? @ -None What meds were considered but not given or refused? Why? @ -None Did you discuss the management of the patient with other professionals (professionals i.e. , PA, REGIONAL AGRONOMIST, lab, RT, psych nurse, social work manager, purchasing administrator, teacher, [place] police officer, community case manager)? Give summary @ -No Was smoking cessation discussed for >3mins.? @ -No Was critical care preformed (if so, how long)? @ -No Were there social determinants of health that impacted care today? How? (Homelessness, low income, unemployed, alcoholism, drug addiction, transportation, low edu. Level, literacy, decrease access to med. care, group home, rehab)? @ -No Was there de-escalation of care discussed even if they declined (Discuss DNR or withdrawal of care, Hospice)? DNR status @ -No What co-morbidities impacted this encounter? (DM, HTN, Smoking, COPD, CAD, Cancer, CVA, ARF, Chemo, Hep., AIDS, mental health diagnosis, sleep apnea, morbid obesity)? @ -None Was patient admitted / discharged? Hospital course, mention meds given and route, prescriptions, significant lab abnormalities, going to OR and other pertinent info. @ -38-year-old male with left orbital pain, facial numbness and tingling. Patient's symptoms resolved at the time of arrival. He did report left arm and left leg symptoms of numbness which was likely related to sleep positioning and resolved without any evaluation or treatment. Patient has an NIH of 0. Normal facial symmetry, normal speech. CAT scan is negative for acute intracranial pathology, shows left maxillary sinusitis. Patient states he has had symptoms of congestion and rhinorrhea for many months. Will be treated for a sinusitis. He is given strict return parameters and will follow closely with his primary care physician. Patient should return to the emergency department with any worsening or changing symptoms. Undiagnosed new problem with uncertain prognosis? @ -No Drug Therapy requiring intensive monitoring for toxicity (Heparin, Nitro, Insulin, Cardizem)? @ -No Were any procedures done? @ -No Diagnosis/symptom? @ -Chronic sinusitis, facial paresthesia, resolved Acute, or Chronic, or Acute on Chronic? @ Chronic, acute Uncomplicated (without systemic symptoms) or Complicated (systemic symptoms)? @ -default Side effects of treatment? @ -No Exacerbation, Progression, or Severe Exacerbation? @ -No Poses a threat to life or bodily function? How? (Chest pain, [place], [place], pneumonia, PE, COPD, DKA, ARF, appy, cholecystitis, CVA, Diverticulitis, Homicidal, Suicidal, threat to staff... and all critical care pts) @ -Low risk at this time - Lab Data Result diagrams: 09/27/23 23:31 09/27/23 23:31 Lab Results 09/27/23 09/27/23 09/27/23 Range/Units 23:31 23:31 23:31 WBC 4.9 (3.8-10.6) k/uL RBC 4.26 L (4.30-5.90) m/uL Hgb 13.6 (13.0-17.5) gm/dL Hct 41.2 (39.0-53.0) % MCV 96.7 (80.0-100.0) fL MCH 32.0 (25.0-35.0) pg MCHC 33.1 (31.0-37.0) g/dL RDW 11.9 (11.5-15.5) % Plt Count 218 (150-450) k/uL MPV 7.0 Neutrophils % 44 % Lymphocytes % 47 % Monocytes % 5 % Eosinophils % 1 % Basophils % 1 % Neutrophils # 2.2 (1.3-7.7) k/uL Lymphocytes # 2.3 (1.0-4.8) k/uL Monocytes # 0.3 (0-1.0) k/uL Eosinophils # 0.1 (0-0.7) k/uL Basophils # 0.0 (0-0.2) k/uL PT 10.9 (10.0-12.5) sec INR 1.0 (<1.2) APTT 25.8 (22.0-30.0) sec Sodium 138 (137-145) mmol/L Potassium 3.6 (3.5-5.1) mmol/L Chloride 100 (98-107) mmol/L Carbon Dioxide 29 (22-30) mmol/L Anion Gap 9 mmol/L BUN 17 (9-20) mg/dL Creatinine 0.81 (0.66-1.25) mg/dL Est GFR (CKD-EPI)AfAm >90 (>60 ml/min/1.73 sqM) Est GFR (CKD-EPI)NonAf >90 (>60 ml/min/1.73 sqM) Glucose 92 (74-99) mg/dL Calcium 9.6 (8.4-10.2) mg/dL Total Bilirubin 0.5 (0.2-1.3) mg/dL AST 40 (17-59) U/L ALT 48 (4-49) U/L Alkaline Phosphatase 62 (38-126) U/L Troponin I (0.000-0.034) ng/mL Total Protein 7.3 (6.3-8.2) g/dL Albumin 4.5 (3.5-5.0) g/dL 09/27/23 Range/Units 23:31 WBC (3.8-10.6) k/uL RBC (4.30-5.90) m/uL Hgb (13.0-17.5) gm/dL Hct (39.0-53.0) % MCV (80.0-100.0) fL MCH (25.0-35.0) pg MCHC (31.0-37.0) g/dL RDW (11.5-15.5) % Plt Count (150-450) k/uL MPV Neutrophils % % Lymphocytes % % Monocytes % % Eosinophils % % Basophils % % Neutrophils # (1.3-7.7) k/uL Lymphocytes # (1.0-4.8) k/uL Monocytes # (0-1.0) k/uL Eosinophils # (0-0.7) k/uL Basophils # (0-0.2) k/uL PT (10.0-12.5) sec INR (<1.2) APTT (22.0-30.0) sec Sodium (137-145) mmol/L Potassium (3.5-5.1) mmol/L Chloride (98-107) mmol/L Carbon Dioxide (22-30) mmol/L Anion Gap mmol/L BUN (9-20) mg/dL Creatinine (0.66-1.25) mg/dL Est GFR (CKD-EPI)AfAm (>60 ml/min/1.73 sqM) Est GFR (CKD-EPI)NonAf (>60 ml/min/1.73 sqM) Glucose (74-99) mg/dL Calcium (8.4-10.2) mg/dL Total Bilirubin (0.2-1.3) mg/dL AST (17-59) U/L ALT (4-49) U/L Alkaline Phosphatase (38-126) U/L Troponin I <0.012 (0.000-0.034) ng/mL Total Protein (6.3-8.2) g/dL Albumin (3.5-5.0) g/dL Disposition Clinical Impression: Facial paresthesia, Sinusitis, chronic Disposition: HOME SELF-CARE Condition: Good Instructions (If sedation given, give patient instructions): Sinusitis (ED), Paresthesia (ED) Additional Instructions: Please monitor symptoms closely, follow up with her primary care physician. Please return to the emergency department with any worsening or changing symptoms. Prescriptions: Amoxic-Pot Clav 875-125Mg [Augmentin 875-125] 1 tab PO Q12HR 10 Days #20 tab Is patient prescribed a controlled substance at d/c from ED?: No Referrals: Abdoul Leblanc Jr, [Primary Care Provider] - 1-2 days Time of Disposition: 01:58
[2023-09-27 23:39] LABS: Basophils % (A) 1 %; Eosinophils # (A) 0.1 k/uL (0-0.7); Eosinophils % (A) 1 %; HCT 41.2 % (39.0-53.0); HGB 13.6 gm/dL (13.0-17.5); Lymphocytes # (A) 2.3 k/uL (1.0-4.8); Lymphocytes % (A) 47 %; MCHC 33.1 g/dL (31.0-37.0); MCV 96.7 fL (80.0-100.0); Monocytes # (A) 0.3 k/uL (0-1.0); Monocytes % (A) 5 %; Neutrophils # (A) 2.2 k/uL (1.3-7.7); Neutrophils % (A) 44 %; Platelet Count 218 k/uL (150-450); RBC 4.26 m/uL (4.30-5.90); RDW 11.9 % (11.5-15.5); WBC 4.9 k/uL (3.8-10.6)
[2023-09-27 23:50] LABS: ALT 48 U/L (4-49); AST 40 U/L (17-59); African American GFR (CKD) >90 (>60 ml/min/1.73 sqM); Albumin 4.5 g/dL (3.5-5.0); Alkaline Phosphatase 62 U/L (38-126); Anion Gap 9 mmol/L; Blood Urea Nitrogen 17 mg/dL (9-20); Calcium 9.6 mg/dL (8.4-10.2); Carbon Dioxide 29 mmol/L (22-30); Chloride 100 mmol/L (98-107); Glucose 92 mg/dL (74-99); Non-African American GFR(CKD) >90 (>60 ml/min/1.73 sqM); Partial Thromboplastin Time 25.8 sec (22.0-30.0); Potassium 3.6 mmol/L (3.5-5.1); Prothrombin Time 10.9 sec (10.0-12.5); Sodium 138 mmol/L (137-145); Total Bilirubin 0.5 mg/dL (0.2-1.3); Total Protein 7.3 g/dL (6.3-8.2)
--- NOTE | 2023-09-28 01:41 | CT ---
EXAM: CT Head Without Intravenous Contrast CLINICAL HISTORY: Neuro deficit, acute, stroke suspected TECHNIQUE: Axial computed tomography images of the head/brain without intravenous contrast. CTDI is 49.2 mGy and DLP is 1138.4 mGy-cm. This CT exam was performed using one or more of the following dose reduction techniques: automated exposure control, adjustment of the mA and/or kV according to patient size, and/or use of iterative reconstruction technique. COMPARISON: No relevant prior studies available. FINDINGS: Brain: No acute stroke. No hemorrhage. No abnormal extra-axial fluid collection. No significant white matter disease. Ventricles: No hydrocephalus. No midline shift. Bones/joints: Unremarkable. No acute fracture. Soft tissues: Unremarkable. Sinuses: Unremarkable as visualized. No acute sinusitis. IMPRESSION: No acute abnormality.
[2023-09-28 01:53] VITALS: BP 127/64; PULSE 58
== END 2023-09-28 02:06 | disposition home or self-care (01) ==
LOC: EC 23:04
DX: J32.9 Chronic sinusitis, unspecified (principal); R20.2 Paresthesia of skin; R00.1 Bradycardia, unspecified
CPT/HCPCS: 36415; 70450; 80053; 84484; 85025; 85610; 85730; 93005; 99284

== ENCOUNTER → 2024-04-16 | Outpatient (CLI) | payer OTHER ==
[2024-04-16 11:06] LABS: Basophils # (A) 0.03 X 10*3/uL (0.00-0.10); Basophils % (A) 0.9 %; Eosinophils # (A) 0.05 X 10*3/uL (0.04-0.35); Eosinophils % (A) 1.5 %; HCT 40.9 % (39.6-50.0); HGB 13.6 g/dL (13.0-17.0); Lymphocytes # (A) 1.17 X 10*3/uL (0.90-5.00); Lymphocytes % (A) 36.2 %; MCHC 33.3 g/dL (32.0-37.0); MCV 96.2 FL (80.0-97.0); Mean Platelet Volume 9.8 FL (9.5-12.2); Monocytes % (A) 9.3 %; NRBC Per 100 WBC 0 X 10*3/uL (0.00-0.01); Neutrophils # (A) 1.67 X 10*3/uL (1.80-7.70); Neutrophils % (A) 51.8 %; Platelet Count 225 X 10*3/uL (140-440); RBC 4.25 X 10*6/uL (4.40-5.60); RDW 11.8 % (11.5-14.5); WBC 3.23 X 10*3/uL (4.50-10.00)
[2024-04-16 11:35] LABS: ALT 24 U/L (10-49); AST 22 U/L (14-35); Albumin 4.5 g/dL (3.8-4.9); Albumin/Globulin Ratio 2.14 Ratio (1.60-3.17); Alkaline Phosphatase 79 U/L (41-126); BUN/Creat Ratio 15.75 Ratio (12.00-20.00); Blood Urea Nitrogen 12.6 mg/dL (9.0-27.0); Calcium 9.2 mg/dL (8.7-10.3); Carbon Dioxide 26.9 mmol/L (21.6-31.8); Chloride 105 mmol/L (96-109); Globulin 2.1 g/dL (1.6-3.3); Glucose 97 mg/dL (70-110); Potassium 4.5 mmol/L (3.5-5.5); Prostate Specific Antigen 0.55 ng/mL (0.000-2.500); Sodium 141 mmol/L (135-145); Total Bilirubin 0.3 mg/dL (0.3-1.2); Total Protein 6.6 g/dL (6.2-8.2)
[2024-04-16 12:22] LABS: Follicle Stimulating Hormone 2.9 mIU/mL
== END | disposition home or self-care (01) ==
LOC: LABWHC1 08:20
PROVIDERS: ATTEND Family Medicine
DX: G47.00 Insomnia, unspecified (principal); N52.9 Male erectile dysfunction, unspecified; R68.82 Decreased libido; R53.83 Other fatigue; Z80.42 Family history of malignant neoplasm of prostate
CPT/HCPCS: 36415; 80053; 83001; 84153; 84402; 84403; 84443; 85025

== ENCOUNTER → 2025-06-02 | Outpatient (CLI) | payer SELFPAY ==
[2025-06-02 15:34] LABS: HCT 40.9 % (39.6-50.0); HGB 13.5 g/dL (13.0-17.0); MCH 32.2 pg (27.0-32.0); MCHC 33.0 g/dL (32.0-37.0); MCV 97.6 FL (80.0-97.0); NRBC Per 100 WBC 0 X 10*3/uL (0.00-0.01); Platelet Count 237 X 10*3/uL (140-440); RBC 4.19 X 10*6/uL (4.40-5.60); RDW 11.8 % (11.5-14.5); WBC 4.06 X 10*3/uL (4.50-10.00)
[2025-06-02 16:05] LABS: ALT 22 U/L (10-49); AST 25 U/L (14-35); Albumin 4.4 g/dL (3.8-4.9); Albumin/Globulin Ratio 1.83 Ratio (1.60-3.17); Alkaline Phosphatase 66 U/L (41-126); Anion Gap 10.50 mmol/L (4.00-12.00); BUN/Creat Ratio 23.12 Ratio (12.00-20.00); Blood Urea Nitrogen 18.5 mg/dL (9.0-27.0); Calcium 9.5 mg/dL (8.7-10.3); Carbon Dioxide 25.5 mmol/L (21.6-31.8); Chloride 106 mmol/L (96-109); Cholesterol 176.00 mg/dL (0.00-200.00); Globulin 2.4 g/dL (1.6-3.3); Glucose 90 mg/dL (70-110); HDL Cholesterol 48.30 mg/dL (40.00-60.00); Iron 110 UG/DL (65-175); LDL Cholesterol,Calculated 116.0 mg/dL (0.0-131.0); Magnesium 2.1 mg/dL (1.5-2.4); Potassium 4.6 mmol/L (3.5-5.5); Prostate Specific Antigen 0.66 ng/mL (0.000-2.500); Sodium 142 mmol/L (135-145); T4, Free (Free Thyroxine) 1.22 ng/dL (0.80-1.80); Total Iron Binding Capacity 357 UG/DL (228-460); Total Protein 6.8 g/dL (6.2-8.2); Triglycerides 58.30 mg/dL (0.00-149.00); VLDL Calculation 11.66 mg/dL (5.00-40.00); Vitamin B12 506.0 pg/mL (200.0-944.0)
== END | disposition home or self-care (01) ==
LOC: LABWHC1 09:29
PROVIDERS: ATTEND Physician Assistant
DX: Z00.00 Encounter for general adult medical examination without abnormal findings (principal); R53.83 Other fatigue; R53.81 Other malaise
CPT/HCPCS: 36415; 80053; 80061; 82306; 82607; 82746; 83036; 83090; 83540; 83550; 83735; 84153; 84439; 84443; 84481; 85027; 85652; 86140